=== PATIENT | male | born 1985 | race African-American/Black ===

== ENCOUNTER 2019-11-13 02:37 | Emergency (ER) | payer OTHER ==
[2019-11-13 02:48] VITALS: BP 154/87
--- NOTE | 2019-11-13 07:13 | EKG REPORT ---
SEVERITY:- ABNORMAL ECG - SINUS RHYTHM NONSPECIFIC T ABNORMALITIES, DIFFUSE LEADS : Confirmed by: Derrick Drake MD 13-Nov-2019 07:12:24
== END 2019-11-13 03:45 | disposition left against medical advice (07) ==
LOC: ER 02:37
DX: Z53.21 Procedure and treatment not carried out due to patient leaving prior to being seen by health care provider (principal)
CPT/HCPCS: 93005; 93010